=== PATIENT | female | born 1995 ===

== ENCOUNTER 2017-09-08 14:07 | Emergency (ER) | payer MEDICAID ==
[2017-09-08 14:08] VITALS: BMI 19.7
[2017-09-08 14:26] VITALS: BP 122/76; PULSE 90; RESP 20; TEMP 98.7; O2SAT 97
--- NOTE | 2017-09-08 14:41 | C.PDOC ---
History Of Present Illness 21 yo female come in for evaluation of let foot pain over 5th MTB gradually developed for past 3 days. Pain is localized, worse with weight bearing. Otherwise, pt denies obvious deformity, weakness, sensory or vascular deficits to Left foot. Ambulate to Ed for evaluation, not in any apparent distress. Time Seen by Provider: 09/08/17 14:11 Chief Complaint (Nursing): Lower Extremity Problem/Injury History Per: Patient Past Medical History Reviewed: Historical Data, Nursing Documentation, Vital Signs Vital Signs: Last Vital Signs Temp 98.7 F 09/08/17 14:23 Pulse 90 09/08/17 14:23 Resp 20 09/08/17 14:23 BP 122/76 09/08/17 14:23 Pulse Ox 97 09/08/17 14:42 - Medical History PMH: No Chronic Diseases, Sexually Transmitted Disease (Trich.) Family History: States: Unknown Family Hx - Social History Hx Alcohol Use: Yes Hx Substance Use: No - Immunization History Hx Tetanus Toxoid Vaccination: Yes Hx Influenza Vaccination: Yes Hx Pneumococcal Vaccination: No Review Of Systems Except As Marked, All Systems Reviewed And Found Negative. Constitutional: Negative for: Fever, Chills Musculoskeletal: Positive for: Foot Pain Skin: Negative for: Rash, Bruising Neurological: Negative for: Weakness, Numbness Physical Exam - Physical Exam Appears: Well, Non-toxic, No Acute Distress Skin: Normal Color, Warm, No Ecchymosis Head: Atraumatic, Normacephalic Extremity: Normal ROM (left foot), Tenderness (dorsal aspect letf foot over 5th MTB, scant ecchymoses. FAROM, no palpable deformity, no neurovascular deficits.) , No Deformity, No Swelling Neurological/Psych: Oriented x3, Normal Speech, Normal Motor, Normal Sensation, Normal Reflexes ED Course And Treatment O2 Sat by Pulse Oximetry: 97 - Other Rad Left foot X-Ray: Interpreted by Me, Viewed By Me Interpretation: (-) acute fx or dislocation Progress Note: On re-eval, pt is afebirle, hemodynamicaly stable. Non-toxic. Ambulatory in Ed with stable giat. Left foot: mild tenderness yohan 5th MTB, no palpable deformity, FAROM, no neurovascular deficits. Imaging review and appears normal. Josesito wrap applined. Pt advised and ref. to f/u with Podiatry Clinic in 2-3 days for re-eval. return if any new changes. Disposition Counseled Patient/Family Regarding: Studies Performed, Diagnosis, Need For Followup, Rx Given - Disposition Referrals: [facility] [Outside] Disposition: HOME/ ROUTINE Disposition Time: 14:42 Condition: STABLE Additional Instructions: Josesito wrap to left foot for 1 week Ibuprofen daily RICE-REST, ICE, COMPRESSION, ELEVATION Follow up with Podiatry Clinic on Monday from 12 noon- 3pm for further evaluation and treatment Instructions: Foot Sprain (DC) Forms: [employer] (Pakistani) - Clinical Impression Clinical Impression: Foot sprain
--- NOTE | 2017-09-08 14:50 | RAD ---
PROCEDURE: Left Foot Radiographs. HISTORY: injury COMPARISON: None. FINDINGS: BONES: No acute fracture or destructive bony lesion identified. JOINTS: Normal. SOFT TISSUES: Normal. OTHER FINDINGS: None. IMPRESSION: Unremarkable left foot radiographs.
== END 2017-09-08 14:53 | disposition home or self-care (01) ==
LOC: C.ER 14:07
DX: S93.602A Unspecified sprain of left foot, initial encounter (principal); X58.XXXA Exposure to other specified factors, initial encounter